=== PATIENT | female | born 1945 | race Caucasian/White ===

== ENCOUNTER 2016-02-18 15:30 | Outpatient (RCR) | payer MEDICARE, BC ==
[~2016-02-18 15:30] MED LIST: MUCINEX 60600 MG/TA1 PO; MULTAQ400 MG PO; NORCO 325 MG-51 TAB PO; OMNICEF 300MG300 MG PO
== END 2016-03-22 12:24 | disposition home or self-care (01) ==
LOC: WSPT 15:30
DX: M79.1 Myalgia (principal)
CPT/HCPCS: G0283-GP; G8978-GP; G8979-GP; G8980-GP

== ENCOUNTER → 2016-10-01 | Outpatient (REF) | LOC: ZLAB.WCH 18:06 | DX: Z01.89 Encounter for other specified special examinations (principal) ==

== ENCOUNTER → 2017-11-10 | Outpatient (REF) ==
[~2017-11-10] MED LIST changes: +ELIQUIS 5MG PO
== END ==
LOC: ZLAB.WCH 16:06
DX: Z01.89 Encounter for other specified special examinations (principal)

== ENCOUNTER 2018-09-26 01:43 | Emergency (ER) | payer MEDICARE, BC ==
[~2018-09-26] VITALS: Ht 170.2 cm; Wt 72.7 kg
[2018-09-26 01:49] VITALS: TEMP 97.4
[2018-09-26 02:08] LABS: BASO # 0.1 (0.0-0.2); BASO % 0.5 % (0.0-2.0); EOS % 0.3 % (0-4.0); GRAN # 6.3 (1.4-6.5); GRAN % 69.3 % (42.2-75.2); HEMOGLOBIN 13.7 g/dl (12.5-16.0); LYMPH # 1.7 (1.2-3.4); LYMPH % 18.6 % (20.0-51.0); MEAN CELL VOLUME 89 fl (80.0-100.0); MEAN CORPUSCULAR HEMOGLOBIN 31 pg (27.0-31.0); MEAN CORPUSCULAR HGB CONC 34 g/dl (33.0-37.0); MEAN PLATELET VOLUME 10.3 fl (7.4-10.4); MONO % 10.9 % (1.7-9.3); PLATELET COUNT 271 K/mm3 (130-400); RED BLOOD COUNT 4.48 M/mm3 (4.10-5.30); REDCELL DISTRIBUTION WIDTH-CV 12.6 % (11.5-14.5)
[2018-09-26 02:15] LABS: ALANINE AMINOTRANSFERASE 14 U/L (9-52); ALBUMIN 4.2 gm/dL (3.5-5.0); ALKALINE PHOSPHATASE 93 U/L (50-136); ANION GAP 10 mmol/L (7-16); AST,SGOT 21 U/L (15-37); BILIRUBIN,TOTAL 0.5 mg/dL (0.0-1.0); BLOOD UREA NITROGEN 23 mg/dL (7-17); CALCIUM 9.3 mg/dL (8.4-10.2); CARBON DIOXIDE 26 mmol/L (22-30); CHLORIDE 104 mmol/L (98-107); GLUCOSE 112 mg/dL (74-106); SODIUM 139 mmol/L (137-145); TOTAL PROTEIN 7.3 gm/dL (6.4-8.2)
[2018-09-26 02:29] LABS: TROPONIN-I < 0.012 ng/mL (0.000-0.035)
[2018-09-26] MEDS ORDERED: ELIQUIS 5MG PO (06:11)
[2018-09-26] MEDS ORDERED: PRINIVIL10 MG PO (06:11)
[2018-09-26 06:13] VITALS: BP 160/79; PULSE 58
== END 2018-09-26 06:21 | disposition home or self-care (01) ==
LOC: COL.ER 01:43
PROVIDERS: Emergency Medicine
DX: R06.00 Dyspnea, unspecified (principal); I48.91 Unspecified atrial fibrillation; Z87.891 Personal history of nicotine dependence; Z90.49 Acquired absence of other specified parts of digestive tract; Z90.710 Acquired absence of both cervix and uterus

== ENCOUNTER → 2019-01-04 | Outpatient (CLI) | payer MEDICARE, BC ==
[~2019-01-04] MED LIST changes: +PRINIVIL10 MG PO
== END ==
LOC: MC.RAD 08:40
DX: Z12.31 Encounter for screening mammogram for malignant neoplasm of breast (principal)

== ENCOUNTER 2019-09-30 06:30 | Emergency (ER) | payer MEDICARE, BC ==
[~2019-09-30] VITALS: Ht 170.2 cm; Wt 73.2 kg
[~2019-09-30 06:30] MED LIST changes: +ASPIRIN 81M81 MG/TA2 PO; +KRILL OIL 3001 EACH PO; +MERIBIN5 MG PO; +THE MEDICINE S200 M2 PO; +TOPROL XL 25MG25 MG PO; +VITAMIN D31000 I1 PO
[2019-09-30 06:37] VITALS: TEMP 98.4
[2019-09-30] MEDS ORDERED: NATURAL MAGNES200 MG (06:55)
[2019-09-30 07:22] LABS: BASO % 0.2 % (0.0-2.0); EOS # 0.1 (0.0-0.7); EOS % 1.3 % (0-4.0); GRAN # 2.4 (1.4-6.5); GRAN % 53.6 % (42.2-75.2); HEMATOCRIT 41.2 % (37.0-47.0); HEMOGLOBIN 13.8 g/dl (12.5-16.0); LYMPH # 1.4 (1.2-3.4); LYMPH % 30.9 % (20.0-51.0); MEAN CELL VOLUME 88 fl (80.0-100.0); MEAN CORPUSCULAR HEMOGLOBIN 30 pg (27.0-31.0); MEAN CORPUSCULAR HGB CONC 34 g/dl (33.0-37.0); MEAN PLATELET VOLUME 10.9 fl (7.4-10.4); MONO # 0.6 (0.1-0.6); MONO % 13.6 % (1.7-9.3); PLATELET COUNT 173 K/mm3 (130-400); RED BLOOD COUNT 4.66 M/mm3 (4.10-5.30); REDCELL DISTRIBUTION WIDTH-CV 12.8 % (11.5-14.5)
[2019-09-30 07:31] LABS: INR 1.4 (0.8-3.0); PROTHROMBIN TIME 15.8 SECONDS (9.7-12.8)
[2019-09-30 07:46] LABS: ALANINE AMINOTRANSFERASE 26 U/L (4-34); ALBUMIN 4.3 gm/dL (3.5-5.0); ALKALINE PHOSPHATASE 73 U/L (50-136); ANION GAP 7 mmol/L (7-16); AST,SGOT 37 U/L (15-37); BILIRUBIN,TOTAL 0.8 mg/dL (0.0-1.0); BLOOD UREA NITROGEN 13 mg/dL (7-17); CALCIUM 9.2 mg/dL (8.4-10.2); CARBON DIOXIDE 26 mmol/L (22-30); CHLORIDE 102 mmol/L (98-107); GLUCOSE 99 mg/dL (74-106); SODIUM 136 mmol/L (137-145); TOTAL PROTEIN 7.7 gm/dL (6.4-8.2)
[2019-09-30] MEDS ORDERED: ZITHROMAX Z PA250 MG PO (07:46)
[2019-09-30 08:22] LABS: TROPONIN-I < 0.012 ng/mL (0.000-0.035)
[2019-09-30 10:05] VITALS: BP 119/88; PULSE 63
== END 2019-09-30 10:24 | disposition home or self-care (01) ==
LOC: COL.ER 06:30
PROVIDERS: Emergency Medicine
DX: R07.89 Other chest pain (principal); I48.91 Unspecified atrial fibrillation; Z90.49 Acquired absence of other specified parts of digestive tract; Z90.710 Acquired absence of both cervix and uterus; Z79.82 Long term (current) use of aspirin; Z79.01 Long term (current) use of anticoagulants; Z95.9 Presence of cardiac and vascular implant and graft, unspecified

== ENCOUNTER 2019-11-11 13:29 | Inpatient (IN) | payer MEDICARE, BC ==
[2019-11-11] VITALS (292 sets, daily range): BP systolic 113; BP diastolic 65; PULSE 60–66; TEMP 97.7–98.1; O2SAT 68–100
[~2019-11-11] VITALS: Ht 167.6 cm; Wt 73.6 kg
[~2019-11-11 13:29] MED LIST changes: +NATURAL MAGNES200 MG; +ZITHROMAX Z PA250 MG PO
[2019-11-11 14:03] LABS: BASO # 0.1 (0.0-0.2); EOS # 0.2 (0.0-0.7); EOS % 2.1 % (0-4.0); GRAN # 5.9 (1.4-6.5); GRAN % 66.7 % (42.2-75.2); HEMATOCRIT 40.8 % (37.0-47.0); HEMOGLOBIN 13.8 g/dl (12.5-16.0); LYMPH # 1.8 (1.2-3.4); LYMPH % 20.4 % (20.0-51.0); MEAN CELL VOLUME 90 fl (80.0-100.0); MEAN CORPUSCULAR HEMOGLOBIN 30 pg (27.0-31.0); MEAN CORPUSCULAR HGB CONC 34 g/dl (33.0-37.0); MEAN PLATELET VOLUME 10.8 fl (7.4-10.4); MONO # 0.9 (0.1-0.6); MONO % 9.7 % (1.7-9.3); PLATELET COUNT 308 K/mm3 (130-400); RED BLOOD COUNT 4.54 M/mm3 (4.10-5.30); REDCELL DISTRIBUTION WIDTH-CV 13.1 % (11.5-14.5)
[2019-11-11 14:14] LABS: ALANINE AMINOTRANSFERASE 18 U/L (4-34); ALBUMIN 4.7 gm/dL (3.5-5.0); ALKALINE PHOSPHATASE 100 U/L (50-136); ANION GAP 12 mmol/L (7-16); AST,SGOT 28 U/L (15-37); BILIRUBIN,TOTAL 0.5 mg/dL (0.0-1.0); BLOOD UREA NITROGEN 20 mg/dL (7-17); CALCIUM 9.7 mg/dL (8.4-10.2); CARBON DIOXIDE 25 mmol/L (22-30); CHLORIDE 103 mmol/L (98-107); CREATININE, serum 0.72 (0.52-1.25); GLUCOSE 117 mg/dL (74-106); SODIUM 140 mmol/L (137-145); TOTAL PROTEIN 8.3 gm/dL (6.4-8.2)
[2019-11-11 14:16] LABS: INR 1.4 (0.8-3.0); PROTHROMBIN TIME 15.3 SECONDS (9.7-12.8)
[2019-11-11 14:18] LABS: PARTIAL THROMBOPLASTIN TIME 43.4 SECONDS (26.0-37.0)
[2019-11-11 14:33] LABS: TROPONIN-I < 0.012 ng/mL (0.000-0.035)
--- NOTE | 2019-11-11 19:20 | NUR ---
Bedside report received from MERY Lopez
--- NOTE | 2019-11-11 20:30 | NUR ---
Patient aake and watching TV. Assessment complete. See shift assessment for details. Patient requests to use the restroom, assisted with cords, otherwise patient is independent. Medications given. Patient has no complaints of pain or SOA. Will continue to monitor. call light within reach.
[2019-11-12] VITALS (261 sets, daily range): BP systolic 101–135; BP diastolic 59–65; PULSE 42–61; TEMP 97.2–97.6; O2SAT 91–100
[2019-11-12 05:15] LABS: BASO # 0.1 (0.0-0.2); EOS # 0.2 (0.0-0.7); EOS % 2.5 % (0-4.0); GRAN # 4.3 (1.4-6.5); GRAN % 62.7 % (42.2-75.2); HEMATOCRIT 37.5 % (37.0-47.0); HEMOGLOBIN 12.7 g/dl (12.5-16.0); LYMPH # 1.6 (1.2-3.4); LYMPH % 23.2 % (20.0-51.0); MEAN CELL VOLUME 89 fl (80.0-100.0); MEAN CORPUSCULAR HEMOGLOBIN 30 pg (27.0-31.0); MEAN CORPUSCULAR HGB CONC 34 g/dl (33.0-37.0); MEAN PLATELET VOLUME 10.6 fl (7.4-10.4); MONO # 0.7 (0.1-0.6); MONO % 10.2 % (1.7-9.3); PLATELET COUNT 259 K/mm3 (130-400); REDCELL DISTRIBUTION WIDTH-CV 13.2 % (11.5-14.5)
[2019-11-12 05:34] LABS: CALCIUM 9.3 mg/dL (8.4-10.2); CREATININE, serum 0.67 (0.52-1.25)
[2019-11-12 06:00] LABS: TSH w REFLEX 0.706 uIU/mL (0.465-4.680)
--- NOTE | 2019-11-12 07:33 | NUR ---
Bedside report given to MERY Cortes
--- NOTE | 2019-11-12 10:11 | NUR ---
Initial visit; Patient thanked [employer] for looking in on her and offering encouragement and prayer. [employer]aster will follow up.
[2019-11-12] MEDS ORDERED: TOPROL XL 25MG25 MG PO (12:20)
--- NOTE | 2019-11-12 12:45 | NUR ---
Discharge instructions and medication changes reviewed with patient, voices understanding. This RN unable to make PCP follow up appointment, as clinic not answering call. Patient states she will call this afternoon and get scheduled. 1252 - discharged to home with driving POV.
--- NOTE | 2019-11-12 14:16 | NUR ---
The patient discharged before an intake was completed.
--- NOTE | 2019-11-12 15:09 | NUR ---
print room worker met with patient to assess for discharge plan. Patient states shes is independent with all of her activities of daily living, including driving. Patient lives in her own home with her spouse and 46 year old son. Patient's son has mental health issues and has been spending most of his days at the [facility]. Patient states her primary care provider is Dr Tovar and that she does not have any issues obtaining prescriptions at this time, however, states she does fall in the "doughnut hole" at times. Patient does not have advance directives and has a family member that she plans to talk to regarding directives and Will information. Patient plans a discharge home this date.
== END 2019-11-12 12:52 | disposition home or self-care (01) | DRG 310 ==
LOC: COL.ER 13:29 → ICU 15:12
PROVIDERS: Family Medicine; ADMIT Internal Medicine Pulmonary Disease
DX: I48.91 Unspecified atrial fibrillation (principal); I51.4 Myocarditis, unspecified; Z86.19 Personal history of other infectious and parasitic diseases; Z79.01 Long term (current) use of anticoagulants; Z87.891 Personal history of nicotine dependence
CPT/HCPCS: 99222-AI

== ENCOUNTER 2020-01-13 00:25 | Emergency (ER) | payer MEDICARE, BC ==
[~2020-01-13] VITALS: Ht 167.6 cm; Wt 74.5 kg
[2020-01-13 00:28] VITALS: TEMP 98
[2020-01-13 00:52] LABS: BASO # 0.1 (0.0-0.2); EOS # 0.3 (0.0-0.7); EOS % 2.8 % (0-4.0); GRAN % 52.8 % (42.2-75.2); HEMATOCRIT 42.3 % (37.0-47.0); HEMOGLOBIN 14.1 g/dl (12.5-16.0); LYMPH # 2.9 (1.2-3.4); LYMPH % 31.3 % (20.0-51.0); MEAN CELL VOLUME 92 fl (80.0-100.0); MEAN CORPUSCULAR HEMOGLOBIN 31 pg (27.0-31.0); MEAN CORPUSCULAR HGB CONC 33 g/dl (33.0-37.0); MEAN PLATELET VOLUME 10.8 fl (7.4-10.4); MONO # 1.1 (0.1-0.6); MONO % 11.8 % (1.7-9.3); PLATELET COUNT 267 K/mm3 (130-400); RED BLOOD COUNT 4.62 M/mm3 (4.10-5.30); REDCELL DISTRIBUTION WIDTH-CV 12.9 % (11.5-14.5)
[2020-01-13 00:54] LABS: INR 1.3 (0.8-3.0); PROTHROMBIN TIME 14.9 SECONDS (9.7-12.8)
[2020-01-13 00:55] LABS: ALANINE AMINOTRANSFERASE 18 U/L (4-34); ALBUMIN 4.9 gm/dL (3.5-5.0); ALKALINE PHOSPHATASE 90 U/L (50-136); ANION GAP 9 mmol/L (7-16); AST,SGOT 32 U/L (15-37); BILIRUBIN,TOTAL 0.6 mg/dL (0.0-1.0); BLOOD UREA NITROGEN 25 mg/dL (7-17); CALCIUM 9.6 mg/dL (8.4-10.2); CARBON DIOXIDE 31 mmol/L (22-30); CHLORIDE 99 mmol/L (98-107); CREATININE, serum 0.73 (0.52-1.25); GLUCOSE 98 mg/dL (74-106); POTASSIUM 4.2 mmol/L (3.4-5.0); SODIUM 139 mmol/L (137-145); TOTAL PROTEIN 8.2 gm/dL (6.4-8.2)
[2020-01-13 01:10] LABS: TROPONIN-I < 0.012 ng/mL (0.000-0.035)
[2020-01-13 03:25] VITALS: BP 157/68; PULSE 50
== END 2020-01-13 03:25 | disposition home or self-care (01) ==
LOC: COL.ER 00:25
PROVIDERS: Emergency Medicine
DX: M79.602 Pain in left arm (principal); I48.91 Unspecified atrial fibrillation; Z79.01 Long term (current) use of anticoagulants; Z86.19 Personal history of other infectious and parasitic diseases; Z87.891 Personal history of nicotine dependence; X50.0XXA Overexertion from strenuous movement or load, initial encounter

== ENCOUNTER → 2021-01-01 | Outpatient (CLI) | payer MEDICARE, BC | LOC: MC.RAD 11-13 14:30 | DX: Z12.31 Encounter for screening mammogram for malignant neoplasm of breast (principal) ==

== ENCOUNTER → 2022-05-07 | Outpatient (CLI) | payer MEDICARE, BC | LOC: MC.RAD 07:15 | DX: Z12.31 Encounter for screening mammogram for malignant neoplasm of breast (principal) ==